=== PATIENT | female | born 1955 | race African-American/Black ===

== ENCOUNTER 2021-11-20 14:30 | Inpatient (IN) ==
[2021-11-20] MEDS ORDERED: SODIUM CHLORIDE 0.9% 1,000 ML IV STA (15:52)
[2021-11-20] MEDS ORDERED: INSULIN REGULAR 100 UNIT/ML IV STA (15:53)
[2021-11-20 16:12] LABS: Basophils % 0.4 % (0.0-0.8); Hematocrit 48.8 VOL% (35.7-47.0); Hemoglobin 15.9 GM/DL (12.0-16.0); Immature Granulocytes % 0.7 %; Immature Granulocytes Absolute 0.02 #; Lymphocytes # 0.4 10*3/uL (1.4-4.0); Lymphocytes % 12.3 % (21.3-54.2); Mean Corpuscular HGB Conc 32.6 GM/DL (32-36); Mean Corpuscular Volume 107.5 FL (87-102); Mean Platelet Volume 13.3 FL (9.6-12.0); Monocytes % 12.3 % (1.7-12.7); Neutrophils % 74.3 % (38.7-73.9); Platelet Count 66 T/CUMM (130-400); Red Blood Count 4.54 MC/CUMM (3.8-5.5); Red Cell Distribution Width 12.7 % (9.3-17.3); White Blood Count 2.8 T/CUMM (4-12)
[2021-11-20 16:26] LABS: Albumin 3.2 G/DL (3.4-5.0); Bilirubin,Total 0.4 MG/DL (0.20-1.00); Calcium 8.9 MG/DL (8.5-10.1); Osmolality,Calculated 286.7 MOS/KG (273-304); Potassium 4.4 MMOL/L (3.5-5.1); Total Protein 7.4 G/DL (6.4-8.2)
[2021-11-20 16:34] LABS: ABG Base Excess 2.5 MMOL/L (-2.5-2.5); ABG HCO3 26.8 MMOL/L (20-26); ABG Oxygen Saturation 96.3 % (95-100); ABG PCO2 40.6 MM HG (35-48); ABG PH 7.438 (7.35-7.45); ABG PO2 86.6 MM HG (80-95); ABG TCO2 28.1 MMOL/L (23-27)
[2021-11-20] MEDS ORDERED: IBUPROFEN 600 MG TABLET PO STA (16:45)
[2021-11-20 18:03] LABS: Amorphous Crystals,Urine Occasional /HPF (Few); Bilirubin,Urine Negative (Negative); Blood, Urine Moderate mg/dL (Negative); Glucose,Urine (UA) >=500 mg/dL (Negative); Ketones,Urine 20 mg/dL (Negative); Mucus,Urine Occasional /LPF (Occasional); Nitrite,Urine Negative (Negative); Protein,Urine 100 MG/DL; RBC,Urine 19 /HPF (0-4); Squamous Epithelial Cell,Urine Occasional /HPF (0-10); Urine Appearance CLOUDY (Clear); Urine Color Yellow (Yellow); Urine Urobilinogen < 2.0 EU/DL (<2.0)
[2021-11-20] MEDS ORDERED: cefTRIAXone 1,000 MG in SODIUM CHLORIDE 0.9% 100 ML IV STA (18:06)
[2021-11-20] MEDS ORDERED: SODIUM CHLORIDE IV STA (18:53)
[2021-11-20] MEDS ORDERED: [UNRECOGNIZED DRUG - OTHER] IV STA (18:53)
[2021-11-20] MEDS ORDERED: FOSPHENYTOIN IV STA (18:53)
[2021-11-20] MEDS ORDERED: FOSPHENYTOIN 500 MG.PE/10 ML VIAL ONE (18:57)
[2021-11-20] MEDS ORDERED: hydrALAZINE 20 MG/1 ML VIAL IV PRN (19:25)
[2021-11-20] MEDS ORDERED: NICOTINE 21 MG/24 HR PATCH TRANSDERM PRN (19:25)
[2021-11-20] MEDS ORDERED: ONDANSETRON 4 MG/2 ML VIAL IV PRN (19:25)
[2021-11-20] MEDS ORDERED: MORPHINE 2 MG/1 ML SYRINGE IV PRN (19:25)
[2021-11-20] MEDS ORDERED: GLUCAGON 1 MG VIAL IM PRN (19:25)
[2021-11-20] MEDS ORDERED: DEXTROSE 10% 25 GM/250 ML BAG IV PRN (19:31)
[2021-11-20] MEDS ORDERED: LORazepam 2 MG/1 ML VIAL IV PRN (19:33)
[2021-11-20 20:05] LABS: Barbiturates Screen,Urine Negative (Negative); Benzodiazepines Screen,Urine Negative (Negative); Cannabinoid Screen,Urine Negative (Negative); Opiate Screen,Urine Negative (Negative); Phencyclidine Screen,Urine Negative (Negative)
[2021-11-20] MEDS: MEROPENEM 500 MG in SODIUM CHLORIDE 0.9% 100 ML IV SCH (20:37)
[2021-11-20 20:38] LABS: Hepatitis B Core IgM Quant 0.24 Index; Hepatitis B Surface Ag Quant 0.15 Index; Hepatitis B Surface Ag Result Non-Reactive (NonReactive); Hepatitis C Virus Ab Quant 0.07 Index; Hepatitis C Virus Ab Result Non-Reactive (NonReactive)
[2021-11-20] MEDS ORDERED: INSULIN REGULAR 100 UNIT/ML SUBCUT ONE ×2 (20:38→21:48)
[2021-11-20] MEDS ORDERED: VANCOMYCIN INJ 1,000 MG in SODIUM CHLORIDE 0.9% 250 ML IV ONE (21:00)
[2021-11-20] MEDS ORDERED: INSULIN GLARGINE 100 UNIT/ML SUBCUT SCH (22:00)
[2021-11-20] MEDS: LACTULOSE 20 GM/30 ML UDCUP PO SCH (22:16)
[2021-11-20] MEDS: SODIUM CHLORIDE 0.9% 1,000 ML IV SCH (22:16)
[2021-11-20] MEDS: SUCRALFATE 1 GM/10 ML UDCUP PO SCH (22:16)
[2021-11-20] MEDS: INSULIN REGULAR 100 UNIT/ML SUBCUT SCH (22:36)
[2021-11-21] MEDS: MEROPENEM 500 MG in SODIUM CHLORIDE 0.9% 100 ML IV SCH ×4 (02:41→21:17)
[2021-11-21 05:25] LABS: Basophils % 0.3 % (0.0-0.8); Hematocrit 29.4 VOL% (35.7-47.0); Hemoglobin 9.6 GM/DL (12.0-16.0); Immature Granulocytes % 0.7 %; Immature Granulocytes Absolute 0.02 #; Lymphocytes # 0.3 10*3/uL (1.4-4.0); Lymphocytes % 9.6 % (21.3-54.2); Mean Corpuscular HGB Conc 32.7 GM/DL (32-36); Mean Corpuscular Volume 106.9 FL (87-102); Mean Platelet Volume 12.2 FL (9.6-12.0); Neutrophils % 85.4 % (38.7-73.9); Platelet Count 76 T/CUMM (130-400); Red Blood Count 2.75 MC/CUMM (3.8-5.5); Red Cell Distribution Width 12.5 % (9.3-17.3)
[2021-11-21 05:55] LABS: Band Neutrophils 9 % (0-10); Hypochromia 1+; Lymphocytes 11 % (20-55); Metamyelocytes 1 %; Microcytosis Slight; Segmented Neutrophils 75 % (50-85); Total Cells Counted 100
[2021-11-21 05:58] LABS: Alanine Aminotransferase 29 U/L (13-56); Albumin 2.5 G/DL (3.4-5.0); Alkaline Phosphatase 145 U/L (45-117); Aspartate Amino Transferase 46 U/L (0-37); Bilirubin,Total < 0.39 MG/DL (0.20-1.00); Blood Urea Nitrogen 25 MG/DL (7-18); Calcium 8.3 MG/DL (8.5-10.1); Carbon Dioxide 25 MMOL/L (21-32); Estimated Glom Filtration Rate 52 ML/MIN; Glucose 280 MG/DL (74-106); HDL Cholesterol 67 MG/DL (40-60); Potassium 3.2 MMOL/L (3.5-5.1); Risk Ratio 4.21; Sodium 136 MMOL/L (136-145); Total Protein 6.7 G/DL (6.4-8.2); Triglycerides 231 MG/DL (2-150); VLDL Cholesterol 46.2 MG/DL
[2021-11-21] MEDS: ACETAMINOPHEN 325 MG TABLET PO PRN ×2 (06:01→21:18)
[2021-11-21] MEDS: SUCRALFATE 1 GM/10 ML UDCUP PO SCH ×4 (08:57→21:18)
[2021-11-21] MEDS: INSULIN REGULAR 100 UNIT/ML SUBCUT SCH ×4 (08:57→21:36)
[2021-11-21] MEDS: LACTULOSE 20 GM/30 ML UDCUP PO SCH ×2 (09:49→21:18)
[2021-11-21] MEDS: SODIUM CHLORIDE 0.9% 1,000 ML IV SCH (13:29)
[2021-11-21] MEDS ORDERED: levETIRAcetam 500 MG TABLET PO SCH ×2 (15:18→21:00)
[2021-11-21 16:13] LABS: Folate 6.31 NG/ML (5.38-24.0)
[2021-11-21 16:16] LABS: % Iron Saturation 11.3 % (18-50); Ferritin 1436.8 ng/mL (8-252)
[2021-11-21 16:45] LABS: Basophils % 0.3 % (0.0-0.8); Eosinophils % 0.1 % (0.00-10.9); Hematocrit 28.1 VOL% (35.7-47.0); Hemoglobin 9.1 GM/DL (12.0-16.0); Immature Granulocytes % 0.3 %; Immature Granulocytes Absolute 0.02 #; Lymphocytes # 1.2 10*3/uL (1.4-4.0); Lymphocytes % 16.4 % (21.3-54.2); Mean Corpuscular HGB Conc 32.4 GM/DL (32-36); Mean Corpuscular Volume 111.1 FL (87-102); Monocytes % 9.2 % (1.7-12.7); Neutrophils % 73.7 % (38.7-73.9); Platelet Count 87 T/CUMM (130-400); Red Blood Count 2.53 MC/CUMM (3.8-5.5); Red Cell Distribution Width 12.8 % (9.3-17.3); White Blood Count 7.4 T/CUMM (4-12)
[2021-11-21] MEDS ORDERED: FOSPHENYTOIN IV ONE (17:00)
[2021-11-21] MEDS ORDERED: SODIUM CHLORIDE IV ONE (17:00)
[2021-11-21] MEDS ORDERED: [UNRECOGNIZED DRUG - OTHER] IV ONE (17:00)
[2021-11-21 17:01] LABS: PT Patient Result 10.7 SECS (10.5-12.0); Partial Thromboplastin Time 29.1 SECS (23.8-32.1)
[2021-11-21 17:53] LABS: Atypical Lymphocytes Few; Band Neutrophils 3 % (0-10); Lymphocytes 20 % (20-55); Metamyelocytes 2 %; Platelet Estimate Adequate; Segmented Neutrophils 71 % (50-85); Spherocytes Slight; Total Cells Counted 100
[2021-11-21] MEDS ORDERED: PHENYTOIN ER 100 MG CAPSULE PO SCH ×2 (21:00)
[2021-11-21] MEDS: FAMOTIDINE 20 MG TABLET PO SCH (21:18)
[2021-11-21] MEDS: levETIRAcetam 250 MG TABLET PO SCH (21:19)
[2021-11-21] MEDS: ZINC OXIDE PASTE 113 GM TUBE TOP SCH (21:33)
[2021-11-21] MEDS: INSULIN GLARGINE 100 UNIT/ML SUBCUT SCH (21:37)
[2021-11-21 22:20] LABS: Basophils % 0.3 % (0.0-0.8); Eosinophils % 0.3 % (0.00-10.9); Hematocrit 27.1 VOL% (35.7-47.0); Immature Granulocytes % 0.5 %; Immature Granulocytes Absolute 0.03 #; Lymphocytes # 1.2 10*3/uL (1.4-4.0); Lymphocytes % 18.5 % (21.3-54.2); Mean Corpuscular HGB Conc 33.2 GM/DL (32-36); Mean Corpuscular Volume 108.4 FL (87-102); Mean Platelet Volume 13.3 FL (9.6-12.0); Monocytes % 11.4 % (1.7-12.7); Platelet Count 82 T/CUMM (130-400); Red Cell Distribution Width 12.8 % (9.3-17.3); White Blood Count 6.6 T/CUMM (4-12)
[2021-11-21 22:43] LABS: Lymphocytes 18 % (20-55); Macrocytosis 1+; Platelet Estimate Decreased; Segmented Neutrophils 76 % (50-85); Total Cells Counted 100
[2021-11-22] MEDS: SODIUM CHLORIDE 0.9% 1,000 ML IV SCH ×2 (00:36→10:27)
[2021-11-22] MEDS: MEROPENEM 500 MG in SODIUM CHLORIDE 0.9% 100 ML IV SCH ×3 (03:47→15:03)
[2021-11-22 06:41] LABS: Basophils % 0.3 % (0.0-0.8); Eosinophils # 0.1 10*3/uL (0.0-0.87); Eosinophils % 0.8 % (0.00-10.9); Hemoglobin 10.6 GM/DL (12.0-16.0); Immature Granulocytes % 0.6 %; Immature Granulocytes Absolute 0.04 #; Lymphocytes # 1.7 10*3/uL (1.4-4.0); Lymphocytes % 26.1 % (21.3-54.2); Mean Corpuscular HGB Conc 32.1 GM/DL (32-36); Mean Corpuscular Volume 111.9 FL (87-102); Mean Platelet Volume 13.9 FL (9.6-12.0); Monocytes % 10.1 % (1.7-12.7); Neutrophils % 62.1 % (38.7-73.9); Platelet Count 82 T/CUMM (130-400); Red Blood Count 2.95 MC/CUMM (3.8-5.5); Red Cell Distribution Width 12.9 % (9.3-17.3); White Blood Count 6.6 T/CUMM (4-12)
[2021-11-22 06:50] LABS: Calcium 8.3 MG/DL (8.5-10.1); Potassium 3.8 MMOL/L (3.5-5.1)
[2021-11-22 06:59] LABS: Alanine Aminotransferase 31 U/L (13-56); Albumin 2.5 G/DL (3.4-5.0); Alkaline Phosphatase 163 U/L (45-117); Aspartate Amino Transferase 72 U/L (0-37); Bilirubin,Direct < 0.100 MG/DL (0.0-0.20); Bilirubin,Indirect 0.3 MG/DL (0.0-1.0); Total Protein 7.3 G/DL (6.4-8.2)
[2021-11-22 07:04] LABS: Hypochromia 1+; Macrocytosis 1+; Platelet Estimate Decreased
[2021-11-22] MEDS ORDERED: LIDOCAINE 2% 5 ML VIAL ONE (08:34)
[2021-11-22] MEDS ORDERED: propofoL 200 MG/20 ML VIAL IV ONE ×2 (08:34→08:48)
[2021-11-22] MEDS ORDERED: PHENYLEPHRINE 1 MG/10 ML SYRINGE IV ONE ×2 (08:43→08:50)
[2021-11-22] MEDS ORDERED: LACTATED RINGERS 1,000 ML IV SCH (08:44)
[2021-11-22] MEDS ORDERED: PNEUMOCOCCAL VACCINE (13 VALENT) 0.5 ML SYRINGE IM ONE (09:00)
[2021-11-22] MEDS: FAMOTIDINE 20 MG TABLET PO SCH (10:29)
[2021-11-22] MEDS: INSULIN GLARGINE 100 UNIT/ML SUBCUT SCH (10:29)
[2021-11-22] MEDS: LACTULOSE 20 GM/30 ML UDCUP PO SCH (10:29)
[2021-11-22] MEDS: levETIRAcetam 250 MG TABLET PO SCH (10:30)
[2021-11-22] MEDS: ZINC OXIDE PASTE 113 GM TUBE TOP SCH (10:30)
[2021-11-22] MEDS: SUCRALFATE 1 GM/10 ML UDCUP PO SCH ×3 (10:30→17:19)
[2021-11-22] MEDS: INSULIN REGULAR 100 UNIT/ML SUBCUT SCH ×3 (11:50→17:19)
[2021-11-22 11:55] LABS: Basophils % 0.4 % (0.0-0.8); Eosinophils # 0.1 10*3/uL (0.0-0.87); Eosinophils % 1.1 % (0.00-10.9); Hematocrit 31.8 VOL% (35.7-47.0); Hemoglobin 10.2 GM/DL (12.0-16.0); Immature Granulocytes Absolute 0.11 #; Lymphocytes # 1.1 10*3/uL (1.4-4.0); Mean Corpuscular HGB Conc 32.1 GM/DL (32-36); Mean Corpuscular Volume 111.2 FL (87-102); Mean Platelet Volume 13.4 FL (9.6-12.0); Monocytes % 10.7 % (1.7-12.7); Neutrophils % 66.8 % (38.7-73.9); Platelet Count 60 T/CUMM (130-400); Red Blood Count 2.86 MC/CUMM (3.8-5.5); Red Cell Distribution Width 12.9 % (9.3-17.3); White Blood Count 5.6 T/CUMM (4-12)
[2021-11-22 14:12] LABS: Polychromasia Slight
[2021-11-22 14:13] LABS: Platelet Estimate Adequate
[2021-11-22 20:38] VITALS: BP 107/57
[2021-11-23] MEDS ORDERED: LEVOTHYROXINE 100 MCG VIAL IV SCH (07:00)
== END 2021-11-22 21:11 | disposition home health service (06) | DRG 871 ==
LOC: EDUNIT# → EDBD → N.ED 14:30 → N.EDINP 19:24 → N.5E 20:10
PROVIDERS: ADMIT Internal Medicine; ATTEND Internal Medicine

== ENCOUNTER 2022-11-19 18:36 | Inpatient (IN) ==
[2022-11-19 20:05] LABS: Basophils % 0.2 % (0.0-0.8); Eosinophils % 0.2 % (0.00-10.9); Hematocrit 37.9 VOL% (35.7-47.0); Hemoglobin 12.2 GM/DL (12.0-16.0); Immature Granulocytes % 1.9 %; Immature Granulocytes Absolute 0.16 #; Lymphocytes # 1.1 10*3/uL (1.4-4.0); Lymphocytes % 12.4 % (21.3-54.2); Mean Corpuscular HGB Conc 32.2 GM/DL (32-36); Mean Corpuscular Volume 101.1 FL (87-102); Mean Platelet Volume 13.9 FL (9.6-12.0); Monocytes # 0.8 10*3/uL (0.11-0.8); Monocytes % 9.8 % (1.7-12.7); Neutrophils % 75.5 % (38.7-73.9); Platelet Count 124 T/CUMM (130-400); Red Blood Count 3.75 MC/CUMM (3.8-5.5); Red Cell Distribution Width 12.6 % (9.3-17.3); White Blood Count 8.49 T/CUMM (4-12)
[2022-11-19] MEDS ORDERED: SODIUM CHLORIDE 0.9% 1,000 ML IV STA ×2 (20:06→21:44)
[2022-11-19 20:18] LABS: Albumin 2.9 G/DL (3.4-5.0); Bilirubin,Total 0.9 MG/DL (0.20-1.00); Osmolality,Calculated 288.5 MOS/KG (273-304); Potassium 4.3 MMOL/L (3.5-5.1); Total Protein 8.2 G/DL (6.4-8.2)
[2022-11-19] MEDS ORDERED: INSULIN REGULAR 100 UNIT/ML IV STA (21:44)
[2022-11-19 22:39] LABS: Mucus,Urine Few /LPF (Occasional); RBC,Urine 16 /HPF (0-4); Squamous Epithelial Cell,Urine Occasional /HPF (0-10)
[2022-11-19 22:40] LABS: Bilirubin,Urine Small mg/dL (Negative); Blood, Urine Moderate mg/dL (Negative); Glucose,Urine (UA) >=1000 mg/dL (Negative); Ketones,Urine >=160 mg/dL (Negative); Nitrite,Urine Negative (Negative); Protein,Urine 100 mg/dL (Negative); Urine Appearance Clear (Clear); Urine Color Yellow (Yellow); Urine pH 5.5 (4.5-8.0)
[2022-11-19 22:46] LABS: Barbiturates Screen,Urine Negative (Negative); Benzodiazepines Screen,Urine Negative (Negative); Cannabinoid Screen,Urine Negative (Negative); Opiate Screen,Urine Negative (Negative); Phencyclidine Screen,Urine Negative (Negative)
[2022-11-19] MEDS ORDERED: GLUCAGON 1 MG VIAL IM PRN (23:09)
[2022-11-19] MEDS ORDERED: ONDANSETRON 4 MG/2 ML VIAL IV PRN (23:09)
[2022-11-19] MEDS ORDERED: hydrALAZINE 20 MG/1 ML VIAL IV PRN (23:09)
[2022-11-19] MEDS ORDERED: INSULIN REGULAR 100 UNIT/ML SUBCUT ONE (23:13)
[2022-11-19] MEDS ORDERED: DEXTROSE 10% 250 ML BAG IV PRN (23:18)
[2022-11-19] MEDS: SODIUM CHLORIDE 0.9% 1,000 ML IV SCH (23:57)
[2022-11-20] MEDS ORDERED: ACETAMINOPHEN 500 MG TABLET PO STA (00:10)
[2022-11-20] MEDS: levETIRAcetam 250 MG TABLET PO SCH ×3 (00:34→22:25)
[2022-11-20] MEDS: INSULIN GLARGINE 100 UNIT/ML SUBCUT SCH ×3 (00:34→22:26)
[2022-11-20] MEDS: LEVOTHYROXINE 175 MCG TABLET PO SCH (06:15)
[2022-11-20 06:22] LABS: Osmolality,Calculated 290.8 MOS/KG (273-304); Potassium 3.7 MMOL/L (3.5-5.1)
[2022-11-20 06:34] LABS: Basophils % 0.5 % (0.0-0.8); Eosinophils % 0.2 % (0.00-10.9); Hemoglobin 10.2 GM/DL (12.0-16.0); Immature Granulocytes % 1.8 %; Immature Granulocytes Absolute 0.12 #; Lymphocytes # 1.1 10*3/uL (1.4-4.0); Lymphocytes % 16.8 % (21.3-54.2); Mean Corpuscular HGB Conc 31.9 GM/DL (32-36); Mean Corpuscular Volume 100.9 FL (87-102); Mean Platelet Volume 13.8 FL (9.6-12.0); Monocytes # 0.8 10*3/uL (0.11-0.8); Monocytes % 12.4 % (1.7-12.7); Neutrophils % 68.3 % (38.7-73.9); Platelet Count 100 T/CUMM (130-400); Red Blood Count 3.17 MC/CUMM (3.8-5.5); Red Cell Distribution Width 12.7 % (9.3-17.3); White Blood Count 6.55 T/CUMM (4-12)
[2022-11-20] MEDS: PANTOPRAZOLE 40 MG TABLET PO SCH (09:13)
[2022-11-20] MEDS: ASPIRIN CHEW 81 MG TABLET PO SCH (09:13)
[2022-11-20] MEDS: DOCUSATE SODIUM 100 MG CAPSULE PO SCH ×2 (09:13→22:25)
[2022-11-20] MEDS: ASCORBIC ACID 500 MG TABLET PO SCH (09:13)
[2022-11-20] MEDS: ROSUVASTATIN 20 MG TABLET PO SCH (09:13)
[2022-11-20] MEDS: INSULIN REGULAR 100 UNIT/ML SUBCUT SCH ×4 (09:14→22:25)
[2022-11-20] MEDS: SODIUM CHLORIDE 0.9% 1,000 ML IV SCH ×2 (09:14→16:21)
[2022-11-20] MEDS: ACETAMINOPHEN 325 MG TABLET PO PRN ×2 (16:25→22:25)
[2022-11-21] MEDS: LEVOTHYROXINE 175 MCG TABLET PO SCH (05:40)
[2022-11-21] MEDS: SODIUM CHLORIDE 0.9% 1,000 ML IV SCH ×3 (09:18→12:41)
[2022-11-21] MEDS: DOCUSATE SODIUM 100 MG CAPSULE PO SCH ×2 (09:19→22:36)
[2022-11-21] MEDS: ASCORBIC ACID 500 MG TABLET PO SCH (09:19)
[2022-11-21] MEDS: ROSUVASTATIN 20 MG TABLET PO SCH (09:19)
[2022-11-21] MEDS: INSULIN REGULAR 100 UNIT/ML SUBCUT SCH ×4 (09:19→22:34)
[2022-11-21] MEDS: levETIRAcetam 250 MG TABLET PO SCH ×2 (09:19→22:35)
[2022-11-21] MEDS: ASPIRIN CHEW 81 MG TABLET PO SCH (09:19)
[2022-11-21] MEDS: PANTOPRAZOLE 40 MG TABLET PO SCH (09:19)
[2022-11-21] MEDS: INSULIN GLARGINE 100 UNIT/ML SUBCUT SCH ×2 (09:19→22:36)
[2022-11-21] MEDS: cefTRIAXone 2,000 MG in SODIUM CHLORIDE 0.9% 100 ML IV SCH (09:25)
[2022-11-21] MEDS: ACETAMINOPHEN 325 MG TABLET PO PRN (22:35)
[2022-11-22] MEDS: SODIUM CHLORIDE 0.9% 1,000 ML IV SCH ×3 (00:32→14:35)
[2022-11-22 05:12] LABS: Basophils % 0.4 % (0.0-0.8); Eosinophils # 0.1 10*3/uL (0.0-0.87); Eosinophils % 2.1 % (0.00-10.9); Hematocrit 32.6 VOL% (35.7-47.0); Hemoglobin 10.9 GM/DL (12.0-16.0); Immature Granulocytes % 0.4 %; Immature Granulocytes Absolute 0.02 #; Lymphocytes # 1.7 10*3/uL (1.4-4.0); Mean Corpuscular HGB Conc 33.4 GM/DL (32-36); Mean Corpuscular Volume 99.1 FL (87-102); Mean Platelet Volume 13.2 FL (9.6-12.0); Monocytes # 0.8 10*3/uL (0.11-0.8); NRBC # 0.04 10*3/uL; Neutrophils % 49.1 % (38.7-73.9); Platelet Count 91 T/CUMM (130-400); Red Blood Count 3.29 MC/CUMM (3.8-5.5); Red Cell Distribution Width 13.2 % (9.3-17.3); White Blood Count 5.18 T/CUMM (4-12)
[2022-11-22 05:28] LABS: Osmolality,Calculated 285.1 MOS/KG (273-304); Potassium 3.8 MMOL/L (3.5-5.1)
[2022-11-22] MEDS: LEVOTHYROXINE 125 MCG TABLET PO SCH (05:46)
[2022-11-22 06:31] LABS: Band Neutrophils 2 % (0-10); Lymphocytes 35 % (20-55); Platelet Estimate Decreased; Total Cells Counted 100
[2022-11-22 06:32] LABS: Anisocytosis Slight
[2022-11-22] MEDS: INSULIN REGULAR 100 UNIT/ML SUBCUT SCH ×4 (07:38→22:00)
[2022-11-22] MEDS: ROSUVASTATIN 20 MG TABLET PO SCH (09:21)
[2022-11-22] MEDS: ASCORBIC ACID 500 MG TABLET PO SCH (09:21)
[2022-11-22] MEDS: PANTOPRAZOLE 40 MG TABLET PO SCH (09:21)
[2022-11-22] MEDS: ASPIRIN CHEW 81 MG TABLET PO SCH (09:21)
[2022-11-22] MEDS: levETIRAcetam 250 MG TABLET PO SCH ×2 (09:21→22:00)
[2022-11-22] MEDS: cefTRIAXone 2,000 MG in SODIUM CHLORIDE 0.9% 100 ML IV SCH (09:21)
[2022-11-22] MEDS: DOCUSATE SODIUM 100 MG CAPSULE PO SCH ×2 (09:21→22:00)
[2022-11-22] MEDS: INSULIN GLARGINE 100 UNIT/ML SUBCUT SCH ×2 (09:22→22:00)
[2022-11-22] MEDS: ACETAMINOPHEN 325 MG TABLET PO PRN (21:58)
[2022-11-23] MEDS: LEVOTHYROXINE 125 MCG TABLET PO SCH (05:45)
[2022-11-23] MEDS: SODIUM CHLORIDE 0.9% 1,000 ML IV SCH ×3 (05:46→21:45)
[2022-11-23 05:51] LABS: Basophils % 0.7 % (0.0-0.8); Eosinophils # 0.1 10*3/uL (0.0-0.87); Eosinophils % 1.6 % (0.00-10.9); Hematocrit 30.3 VOL% (35.7-47.0); Hemoglobin 9.8 GM/DL (12.0-16.0); Immature Granulocytes % 1.4 %; Immature Granulocytes Absolute 0.06 #; Lymphocytes # 1.7 10*3/uL (1.4-4.0); Lymphocytes % 39.8 % (21.3-54.2); Mean Corpuscular HGB Conc 32.3 GM/DL (32-36); Mean Corpuscular Volume 101.7 FL (87-102); Mean Platelet Volume 13.8 FL (9.6-12.0); Monocytes # 0.7 10*3/uL (0.11-0.8); Monocytes % 15.1 % (1.7-12.7); Neutrophils % 41.4 % (38.7-73.9); Platelet Count 93 T/CUMM (130-400); Red Blood Count 2.98 MC/CUMM (3.8-5.5); Red Cell Distribution Width 13.6 % (9.3-17.3)
[2022-11-23 06:02] LABS: Calcium 8.7 MG/DL (8.5-10.1); Potassium 3.6 MMOL/L (3.5-5.1)
[2022-11-23 06:48] LABS: Anisocytosis Slight; Burr Cells Few; Macrocytosis Slight; Platelet Estimate Decreased
[2022-11-23] MEDS: INSULIN REGULAR 100 UNIT/ML SUBCUT SCH ×4 (07:29→21:59)
[2022-11-23] MEDS: cefTRIAXone 2,000 MG in SODIUM CHLORIDE 0.9% 100 ML IV SCH (07:38)
[2022-11-23] MEDS: ASPIRIN CHEW 81 MG TABLET PO SCH (09:16)
[2022-11-23] MEDS: ROSUVASTATIN 20 MG TABLET PO SCH (09:16)
[2022-11-23] MEDS: levETIRAcetam 250 MG TABLET PO SCH ×2 (09:16→21:52)
[2022-11-23] MEDS: ASCORBIC ACID 500 MG TABLET PO SCH (09:16)
[2022-11-23] MEDS: PANTOPRAZOLE 40 MG TABLET PO SCH (09:17)
[2022-11-23] MEDS: DOCUSATE SODIUM 100 MG CAPSULE PO SCH ×2 (09:17→21:49)
[2022-11-23] MEDS: INSULIN GLARGINE 100 UNIT/ML SUBCUT SCH ×2 (10:14→21:54)
[2022-11-23] MEDS: ACETAMINOPHEN 325 MG TABLET PO PRN (21:49)
[2022-11-24 04:54] LABS: Basophils % 0.6 % (0.0-0.8); Eosinophils # 0.1 10*3/uL (0.0-0.87); Eosinophils % 1.6 % (0.00-10.9); Hematocrit 28.9 VOL% (35.7-47.0); Hemoglobin 9.4 GM/DL (12.0-16.0); Lymphocytes # 2.2 10*3/uL (1.4-4.0); Lymphocytes % 44.2 % (21.3-54.2); Mean Corpuscular HGB Conc 32.5 GM/DL (32-36); Mean Corpuscular Volume 101.8 FL (87-102); Mean Platelet Volume 13.3 FL (9.6-12.0); Monocytes # 0.6 10*3/uL (0.11-0.8); Monocytes % 11.5 % (1.7-12.7); Neutrophils % 40.1 % (38.7-73.9); Platelet Count 167 T/CUMM (130-400); Red Blood Count 2.84 MC/CUMM (3.8-5.5); Red Cell Distribution Width 13.6 % (9.3-17.3); White Blood Count 4.89 T/CUMM (4-12)
[2022-11-24 05:13] LABS: Calcium 8.8 MG/DL (8.5-10.1); Potassium 3.4 MMOL/L (3.5-5.1)
[2022-11-24] MEDS: LEVOTHYROXINE 125 MCG TABLET PO SCH (07:28)
[2022-11-24] MEDS: INSULIN REGULAR 100 UNIT/ML SUBCUT SCH ×2 (08:15→13:02)
[2022-11-24] MEDS: DOCUSATE SODIUM 100 MG CAPSULE PO SCH (09:08)
[2022-11-24] MEDS: ROSUVASTATIN 20 MG TABLET PO SCH (09:08)
[2022-11-24] MEDS: ASPIRIN CHEW 81 MG TABLET PO SCH (09:08)
[2022-11-24] MEDS: cefTRIAXone 2,000 MG in SODIUM CHLORIDE 0.9% 100 ML IV SCH (09:08)
[2022-11-24] MEDS: levETIRAcetam 250 MG TABLET PO SCH (09:08)
[2022-11-24] MEDS: ASCORBIC ACID 500 MG TABLET PO SCH (09:09)
[2022-11-24] MEDS: PANTOPRAZOLE 40 MG TABLET PO SCH (09:09)
[2022-11-24] MEDS: INSULIN GLARGINE 100 UNIT/ML SUBCUT SCH (09:09)
[2022-11-24] MEDS ORDERED: POTASSIUM CHLORIDE 20 MEQ TABLET PO ONE (09:35)
[2022-11-24 09:55] LABS: % Iron Saturation 45.8 % (18-50)
[2022-11-24 10:14] LABS: Folate 16.83 NG/ML (5.38-24.0)
[2022-11-24 12:23] VITALS: BP 116/52
[2022-11-24] MEDS: SODIUM CHLORIDE 0.9% 1,000 ML IV SCH (12:34)
== END 2022-11-24 15:42 | disposition home health service (06) | DRG 637 ==
LOC: N.ED 18:36 → SUATTDRO 23:02 → N.EDINP 23:02 → N.TELEN 11-20 00:09
PROVIDERS: ADMIT Internal Medicine; ATTEND Internal Medicine